=== PATIENT | female | born 1935 | race Caucasian/White ===

== ENCOUNTER → 2018-03-08 | Outpatient (CLI) | payer MEDICARE ==
[~2018-03-08] MED LIST: ALE10 PO; ASPI81TA94 PO; AUG500 PO; CETI-176 PO; CETI5TAB22 PO; CIPR-344 PO; DEN60I SUBQ; FAMO20TA28 PO; GLUC-130 PO; GLUC1TAB39; LEVO25TA56 PO; LEVO50TA80 PO; MAXI VISION PO; MEPE50TA29 PO; MULT-1 PO; MULT-820 PO; MULT-865 PO; OMEP-137 PO; OMEP-218 PO; ONDA4TAB PO; OSC600 PO; PARVASTATIN PO; PHEN200T32 PO; PRA20 PO; PRAV20TA65 PO; PRAV20TA66 PO; SULF-197 PO; [UNRECOGNIZED DRUG - CODE] PO; [UNRECOGNIZED DRUG - CODE] PO; [UNRECOGNIZED DRUG - OTHER] PO
== END ==
LOC: US 00:43
PROVIDERS: ATTEND Family Medicine
DX: I51.7 Cardiomegaly (principal); I35.0 Nonrheumatic aortic (valve) stenosis
CPT/HCPCS: 93306

== ENCOUNTER → 2018-03-23 | Outpatient (CLI) | payer MEDICARE ==
--- NOTE | 2018-03-24 15:00 | RADIOLOGY IMAGING REPORT ---
[place] [facility] [place] NAME: IFTIKHAR MYERS : [id number] MR: [id number] V: [id number] EXAM DATE: ORDERING PHYSICIAN: BRIT BUTLER TECHNOLOGIST: Mamta Pedraza PROCEDURE: MAMMOGRAM SCREENING RIGHT UNILATERAL WITH CAD ASSISTED INTERPRETATION & 3D TOMOSYNTHESIS COMPARISON: Prior mammograms dated 02/22/17, 08/08/12 INDICATIONS: SCREENING FINDINGS: Moderately heterogeneous fibroglandular tissue is seen throughout the Right breast. The parenchymal pattern has remained stable allowing for difference in mammographic technique & patient positioning. There is no evidence of malignant appearing mass, malignant appearing calcification or other secondary sign of malignancy in the Right breast. DIAGNOSTIC CATEGORY 1--NEGATIVE. RECOMMENDATIONS: ROUTINE MAMMOGRAM AND CLINICAL EVALUATION. IMPRESSION: BIRADS 1: Negative. No significant abnormality of the Right breast is seen. Dictated by: Hollie Orta M.D. on 03/23/2018 at 16:42 Transcribed by: ELLIE on 03/24/2018 at 8:42 Approved by: Hollie Orta M.D. on 03/24/2018 at 14:59 [facility]
== END ==
LOC: MAMO 00:14
PROVIDERS: ATTEND Family Medicine
DX: Z12.31 Encounter for screening mammogram for malignant neoplasm of breast (principal)
CPT/HCPCS: 77063; 77067

== ENCOUNTER 2018-04-01 10:00 | Outpatient (RCR) | payer MEDICARE ==
--- NOTE | 2018-03-04 12:40 | SPEECH INITIAL EVALUATION ---
INITIAL SPEECH THERAPY EVALUATION REPORT Language Assessment Patient Name: Jazz Velez Date of Evaluation: 03/02/18 & 03/04/2018 Patient : 1935, 82 yo Clinician: Carolin Andrade M.S., CCC-[employer] Treatment Dx: mild expressive aphasia BACKGROUND The patient is an 82 year old female experiencing expressive language impairment of unknown origin. Deficits are observed in both spoken and written language expression. She describes, knowing what [she] wants to say, but struggling to get the words out. The patient reports a history of migraine headaches with aura, hearing loss, bilateral carotid plaque and stenosis, and a severe urinary tract infection in 2016. The UTI resulted in temporary cognitive changes. She feels these quickly resolved. The patient reports that she has been experiencing difficulties with speaking since the after a very severe migraine headache. She was subsequently unable to speak more than two syllables at a time. Rapid improvements were noted; however, minor difficulties with speaking and writing have persisted throughout the years. The patient resides with her spouse and is independent with all functions. She continues to drive, manages her own medications, handles finances, and remains active with friends in the community. She enjoys reading, puzzles, and spending time with her children. LANGUAGE/COGNITION The Embudo Diagnostic Aphasia Examination (BDAE; short form) was administered to analyze expressive and receptive language. The BDAE assesses the communicative status of the following subcategories: speech fluency, spontaneous and automatic expression, item naming, verbal repetition, articulation, paraphasic errors, written expression, auditory comprehension, and reading. The following results were obtained: Assessment Category Raw %ile Score Speech Fluency Phrase length 10/30 100 Melodic Line 10/30 100 Grammatical Form 09/30 70 Conversation/Expository Speech 09/30 70 Auditory Comprehension Basic Words 100 Commands 01/03 70 Complex Ideas 09/29 100 Articulatory Agility 08/30 50 Recitation 07/28 100 Repitition Words 08/28 100 Sentences 04/27 50 Naming Responsive Naming 02/02 100 Categorical Naming 04/06 100 Paraphasias Phonemic 2 instances 60 Verbal 0 instances 100 Neologistic 0 instances 100 Multi-Word 0 instances 100 Reading Matching Cases and Scripts 07/28 100 Number Matching 07/28 100 Picture Word Matching 07/28 100 Oral Word Reading 100 Oral Sentence Reading 08/28 100 Oral Sentence Comprehension 06/26 100 Sentence/Paragraph 07/28 100 Writing Form 100 Letter Choice 100 Motor Facility 01/07 30 Primer Words 07/28 100 Regular Phonics 04/27 50 Common Irregular Words 06/26 100 Picture Naming 06/27 70 Narrative Writing 01/04 80 Primary areas of impairment were noted during expressive language activities. The patient exhibited difficulty with word finding in connected, conversational speech. This resulted in intermittent pauses, and decreased connectivity/organization of speech output. Decreased articulatory agility was also noted in production of multisyllabic words. Phonemic pharaphasias were infrequently observed. Deficits in written expression were characterized by laborious motor facility and infrequent letter substitutions. Letter substitution errors were often self-corrected. Errors were made during sentence repetition task; however, suspect performance was negatively impacted by hearing loss. Receptive language appears to be relatively intact despite minor difficulty following complex commands. Again, suspect this may be secondary to reported hearing loss. Insight regarding expressive language impairment is excellent, and the patient is highly motivated to succeed. The patient reports that she is embarrassed by not being able to carry on a conversation, and often relies on her to repair communicative breakdowns. Cognition was informally screened via short-term memory tasks, analysis of problem solving for immediate environment, orientation to medical history, and prospective recall for upcoming appointments. No significant areas of deficit were observed. The patient expressed her children are concerned that her language deficits may be attributed to onset of dementia. I do not suspect this to be the case. SUMMARY Although the patients CT scan from 2017 did not indicate any area of neurological infarct, it is my impression that she is experiencing mild expressive aphasia via both spoken and written modalities. Expressive language impairments may functionally impact the patients quality of life and effective communication in the home and community. Patient may experience difficulties participating in the following activities: Communication of complex medical information Requesting or explaining instructions for navigation Explaining information during an emergency phone call Participating in conversational discourse during social occasions ST services are warranted to provide patient instruction in compensatory strategies and expressive language exercises to support identified areas of impairment for decreased reliance on her spouse, for positive community engagement, and for optimized safety and independence. RECOMMENDATIONS 1. ST 2x/wk, 8wks PROGNOSIS: Excellent. Very strong motivation. High level of insight. PLAN OF CARE Short Term Goals 1. The patient will utilize word finding strategies during participation in complex expressive language activities (expository discourse, medical conversations, descriptive discourse) during 90% of opportunities when provided with min verbal cues for successful social communication and heightened independence in home and community settings. 2. The patient will produce written sentences describing routine daily events with 100% accuracy and min verbal/visual cues for successful functional communication related to patient independence and safety. Long-Term Goals 1. The patient will demonstrate functional expressive communication for safety and independence in the community with minimized reports of embarrassment/frustration. Thank you for this referral. Please call [phone] Carolin Andrade M.S., [facility] Physician Signature [*] FERNIED
== END 2018-04-01 11:34 | disposition home or self-care (01) ==
LOC: ST 10:00
PROVIDERS: ATTEND Family Medicine
DX: R47.01 Aphasia (principal)
CPT/HCPCS: 92523

== ENCOUNTER → 2018-12-07 | Outpatient (CLI) | payer OTHER ==
--- NOTE | 2018-12-07 15:32 | RADIOLOGY IMAGING REPORT ---
FACILITY: [facility] - [place] PATIENT NAME: Jazz Velez : 1935 MR: [id number] V: [id number] EXAM DATE: ORDERING PHYSICIAN: BRIT BUTLER TECHNOLOGIST: Location: [facility] - [place] Patient: Jazz Velez : 1935 Visit/Account:[id number] Date of Sevice: 12/07/2018 Exam type: CHEST PA AND LAT History: Cough after antibiotics, history of chronic bronchitis Comparison: February 29, 2016. Findings: The lungs are free of acute effusions, infiltrates or edema. The cardiac silhouette is normal in siz e. There is moderate ectasia of the calcified thoracic aorta. There are spondylotic changes of the thoracic spine with exaggeration of the normal thoracic kyphosis IMPRESSION: 1. No acute cardiopulmonary process seen Report Dictated By: Hollie Orta MD at 12/07/2018 3:22 PM Report E-Signed By: Hollie Orta MD at 12/07/2018 3:23 PM WSN:[email or web address]
== END ==
LOC: RAD 13:26
PROVIDERS: ATTEND Family Medicine
DX: R05 Cough (principal)
CPT/HCPCS: 71046

== ENCOUNTER → 2018-12-13 | Outpatient (CLI) | payer OTHER ==
--- NOTE | 2018-12-13 11:27 | RADIOLOGY IMAGING REPORT ---
FACILITY: [facility] PATIENT NAME: Jazz Velez : 1935 MR: [id number] V: [id number] EXAM DATE: ORDERING PHYSICIAN: BRIT BUTLER TECHNOLOGIST: Location: [facility] Patient: Jazz Velez : 1935 Visit/Account:[id number] Date of Sevice: 12/13/2018 LIVER HISTORY: Abnormal LFTs COMPARISON: CT abdomen pelvis July 13, 2012 FINDINGS: Gallbladder: Surgically absent Liver: There Is a 1.6 cm cystic structure projecting along the undersurface of the left lobe the live r that does not appear vascular likely representing a cyst Common duct: Dilated, 20 mm diameter. The intrahepatic biliary tree also appears dilated Pancreas: Partially obscured by bowel, visualized aspects unremarkable. Right kidney: There is cortical thinning of the right kidney Upper abdominal aorta and IVC: Patent. Ascites: None visualized. IMPRESSION: Post surgical changes from a cholecystectomy Common bile duct is dilated at 20 mm. The intrahepatic biliary tree is also dilated which could be r elated to the post cholecystectomy changes although if biliary obstruction is of clinical concern MRC P is recommended Cortical thinning of the right kidney Report Dictated By: Hollie Orta MD at 12/13/2018 11:12 AM Report E-Signed By: Hollie Orta MD at 12/13/2018 11:18 AM WSN:[email or web address]
== END ==
LOC: US 00:55
PROVIDERS: ATTEND Family Medicine
DX: N28.89 Other specified disorders of kidney and ureter (principal)
CPT/HCPCS: 76705